=== PATIENT | male | born 1950 | race Two or more races ===

== ENCOUNTER 2023-04-21 00:01 | Inpatient (IN) | payer MEDICARE, MEDICAID ==
[2023-04-21] VITALS (14 sets, daily range): BP systolic 80–123; BP diastolic 49–66; PULSE 65–98; RESP 13–20; TEMP 98.1–98.4; O2SAT 96–100
[~2023-04-21] VITALS: Ht 172.7 cm; Wt 65.8 kg
[~2023-04-21 00:01] MED LIST: ACE3T PO
[2023-04-21 01:22] LABS: Basophils # (auto) 0 10 ^3/uL (0-0.2); Eosinophils # (auto) 0 10 ^3/uL (0-0.8); Hematocrit 11.5 % (41.0-53.0); Monocytes # (auto) 0.5 10 ^3/uL (0-1.3); Red Blood Cells 1.14 10^6/uL (4.5-5.90)
[2023-04-21 01:24] LABS: Basophils % (auto) 0.2 % (0.0-2.0); Eosinophils % (auto) 0.1 % (0.0-7.0); Lymphocytes # (auto) 0.9 10 ^3/uL (0.4-5.4); Lymphocytes % (auto) 9.6 % (10.0-50.0); Mean Corpuscular Hemoglobin 31.9 pg (28.0-32.0); Mean Corpuscular Hgb Conc. 31.8 g/dL (32.0-36.0); Mean Corpuscular Volume 100.2 fL (80.0-100.0); Monocytes % (auto) 5.7 % (0.0-12.0); Neutrophils % (auto) 84.4 % (37.0-80.0); White Blood Cell 9.5 10^3/uL (4.4-10.8)
[2023-04-21 01:25] LABS: Red Cell Distribution Width 23.2 % (11.8-14.3)
[2023-04-21 01:27] LABS: Hemoglobin 3.6 g/dL (13.5-17.5)
[2023-04-21 01:42] LABS: Albumin 1.4 g/dL (3.4-5.0); BUN/Creatinine Ratio 57.6 (10.0-20.0); Calcium 6.9 mg/dL (8.5-10.1)
[2023-04-21 01:45] LABS: Lactic Acid w/Reflex 2.2 mmol/L (0.4-2.0)
[2023-04-21 01:54] LABS: Bilirubin, Total 0.2 mg/dL (0.2-1.0); Total Protein 3.3 g/dL (6.4-8.2)
[2023-04-21] MEDS ORDERED: PANTOPRAZOLE 40 MG/10 ML VIAL INJ IV ONE (02:45)
[2023-04-21] MEDS ORDERED: cefTRIAXone 1GM/50ML D5W 50 ML IV ONE (02:45)
[2023-04-21 06:16] LABS: Urine Bacteria FEW /hpf (None Seen); Urine Blood Negative /uL (Negative); Urine WBC 1 /hpf (0 - 3)
[2023-04-21 09:36] LABS: Basophils # (auto) 0 10 ^3/uL (0-0.2); Eosinophils # (auto) 0 10 ^3/uL (0-0.8); Lymphocytes # (auto) 0.7 10 ^3/uL (0.4-5.4); Mean Corpuscular Hemoglobin 29.2 pg (28.0-32.0); Monocytes # (auto) 0.4 10 ^3/uL (0-1.3)
[2023-04-21 09:38] LABS: Basophils % (auto) 0.3 % (0.0-2.0); Hematocrit 24.9 % (41.0-53.0); Lymphocytes % (auto) 10.7 % (10.0-50.0); Mean Corpuscular Hgb Conc. 32.2 g/dL (32.0-36.0); Mean Corpuscular Volume 90.5 fL (80.0-100.0); Monocytes % (auto) 6.5 % (0.0-12.0); Neutrophils # (auto) 5.7 10 ^3/uL (1.6-8.6); Neutrophils % (auto) 82.5 % (37.0-80.0); Red Blood Cells 2.74 10^6/uL (4.5-5.90); White Blood Cell 6.9 10^3/uL (4.4-10.8)
[2023-04-21] MEDS ORDERED: ONDANSETRON HCL 4 MG/2 ML VIAL IV ONE (09:45)
[2023-04-21] MEDS ORDERED: MORPHINE SULFATE INJ 2 MG/ml SYRG IV ONE (09:45)
[2023-04-21 09:47] LABS: Nucleated Red Blood Cells % 3.2 %
[2023-04-21 10:00] LABS: INR 1.04 (0.9-1.15); Partial Thromboplastin Time 23.1 SEC (24.5-34.5)
[2023-04-21] MEDS ORDERED: NITROGLYCERIN 0.4 MG SL TAB SL PRN (11:15)
[2023-04-21] MEDS ORDERED: DEXTROSE (50%) 50ML SYRG IV PRN (11:15)
[2023-04-21] MEDS ORDERED: MORPHINE SULFATE INJ 2 MG/ml SYRG IV PRN ×2 (11:15→11:30)
[2023-04-21] MEDS: InsuLIN REG 1unit/0.01ml Soln (100units/ml) SC SCH ×3 (11:30→22:00)
[2023-04-21] MEDS: ACCU-CHEK COMFORT CURVE STRIP VI SCH ×3 (11:39→22:18)
[2023-04-21] MEDS ORDERED: DOCUSATE SOD 100 MG CAP PO PRN (11:45)
[2023-04-21 12:45] LABS: Basophils # (auto) 0 10 ^3/uL (0-0.2); Eosinophils # (auto) 0 10 ^3/uL (0-0.8); Eosinophils % (auto) 0.1 % (0.0-7.0); Hemoglobin 7.5 g/dL (13.5-17.5); Monocytes # (auto) 0.5 10 ^3/uL (0-1.3)
[2023-04-21 12:47] LABS: Basophils % (auto) 0.2 % (0.0-2.0); Hematocrit 22.7 % (41.0-53.0); Lymphocytes # (auto) 0.7 10 ^3/uL (0.4-5.4); Lymphocytes % (auto) 11.5 % (10.0-50.0); Mean Corpuscular Hemoglobin 29.6 pg (28.0-32.0); Mean Corpuscular Hgb Conc. 32.9 g/dL (32.0-36.0); Mean Corpuscular Volume 89.9 fL (80.0-100.0); Monocytes % (auto) 8.1 % (0.0-12.0); Neutrophils # (auto) 4.5 10 ^3/uL (1.6-8.6); Neutrophils % (auto) 80.1 % (37.0-80.0); Red Blood Cells 2.52 10^6/uL (4.5-5.90); White Blood Cell 5.7 10^3/uL (4.4-10.8)
[2023-04-21 12:53] LABS: Red Cell Distribution Width 20.6 % (11.8-14.3)
[2023-04-21] MEDS: PIPERACILLIN-TAZOB 3.375GM 100 ML IV SCH ×2 (15:21→22:47)
[2023-04-21 19:05] LABS: Basophils # (auto) 0 10 ^3/uL (0-0.2); Eosinophils # (auto) 0 10 ^3/uL (0-0.8); Monocytes # (auto) 0.4 10 ^3/uL (0-1.3)
[2023-04-21 19:07] LABS: Basophils % (auto) 0.7 % (0.0-2.0); Eosinophils % (auto) 0.2 % (0.0-7.0); Hematocrit 20.9 % (41.0-53.0); Lymphocytes # (auto) 0.7 10 ^3/uL (0.4-5.4); Lymphocytes % (auto) 13.2 % (10.0-50.0); Mean Corpuscular Hgb Conc. 32.7 g/dL (32.0-36.0); Mean Corpuscular Volume 88.7 fL (80.0-100.0); Monocytes % (auto) 7.7 % (0.0-12.0); Neutrophils # (auto) 4.1 10 ^3/uL (1.6-8.6); Neutrophils % (auto) 78.2 % (37.0-80.0); Red Blood Cells 2.35 10^6/uL (4.5-5.90); White Blood Cell 5.2 10^3/uL (4.4-10.8)
[2023-04-21 19:09] LABS: Nucleated Red Blood Cells % 4.3 %; Red Cell Distribution Width 21.9 % (11.8-14.3)
[2023-04-21 19:11] LABS: Hemoglobin 6.8 g/dL (13.5-17.5)
[2023-04-22] MEDS: PIPERACILLIN-TAZOB 3.375GM 100 ML IV SCH ×2 (05:43→14:12)
[2023-04-22 05:47] LABS: Basophils # (auto) 0 10 ^3/uL (0-0.2); Eosinophils # (auto) 0 10 ^3/uL (0-0.8); Hemoglobin 7.3 g/dL (13.5-17.5); Mean Corpuscular Hgb Conc. 33.4 g/dL (32.0-36.0); Monocytes # (auto) 0.4 10 ^3/uL (0-1.3)
[2023-04-22 05:49] LABS: Basophils % (auto) 0.4 % (0.0-2.0); Eosinophils % (auto) 0.4 % (0.0-7.0); Hematocrit 21.9 % (41.0-53.0); Lymphocytes # (auto) 0.5 10 ^3/uL (0.4-5.4); Lymphocytes % (auto) 9.7 % (10.0-50.0); Mean Corpuscular Hemoglobin 29.2 pg (28.0-32.0); Mean Corpuscular Volume 87.5 fL (80.0-100.0); Monocytes % (auto) 7.8 % (0.0-12.0); Neutrophils % (auto) 81.7 % (37.0-80.0); Red Blood Cells 2.51 10^6/uL (4.5-5.90); White Blood Cell 4.9 10^3/uL (4.4-10.8)
[2023-04-22 06:03] LABS: Albumin 1.6 g/dL (3.4-5.0); Calcium 7.4 mg/dL (8.5-10.1); Potassium 3.9 mmol/L (3.5-5.1)
[2023-04-22 06:06] LABS: BUN/Creatinine Ratio 48.2 (10.0-20.0); Bilirubin, Total 0.2 mg/dL (0.2-1.0); Total Protein 3.7 g/dL (6.4-8.2)
[2023-04-22 06:07] LABS: Nucleated Red Blood Cells % 5.1 %; Red Cell Distribution Width 20.5 % (11.8-14.3)
[2023-04-22] MEDS: ACCU-CHEK COMFORT CURVE STRIP VI SCH ×3 (06:38→21:04)
[2023-04-22] MEDS: InsuLIN REG 1unit/0.01ml Soln (100units/ml) SC SCH ×3 (06:50→21:08)
[2023-04-22 08:00] VITALS: PULSE 74; RESP 15; O2SAT 100
[2023-04-22] MEDS ORDERED: PANTOPRAZOLE 40 MG/10 ML VIAL INJ IV SCH (10:00)
[2023-04-22 20:00] VITALS: PULSE 76; RESP 12; O2SAT 100
[2023-04-22] MEDS: PANTOPRAZOLE 40 MG/10 ML VIAL INJ IV SCH (23:17)
[2023-04-23] VITALS (15 sets, daily range): BP systolic 85–146; BP diastolic 51–79; PULSE 78–112; RESP 16–18; TEMP 97.5–98.7; O2SAT 95–100
[2023-04-23 05:58] LABS: Basophils # (auto) 0 10 ^3/uL (0-0.2); Eosinophils # (auto) 0 10 ^3/uL (0-0.8)
[2023-04-23 06:00] LABS: Basophils % (auto) 0.4 % (0.0-2.0); Eosinophils % (auto) 0.2 % (0.0-7.0); Lymphocytes % (auto) 17.9 % (10.0-50.0); Mean Corpuscular Hemoglobin 30.9 pg (28.0-32.0); Mean Corpuscular Hgb Conc. 33.6 g/dL (32.0-36.0); Monocytes # (auto) 0.5 10 ^3/uL (0-1.3); Monocytes % (auto) 9.4 % (0.0-12.0); Neutrophils # (auto) 4.2 10 ^3/uL (1.6-8.6); Neutrophils % (auto) 72.1 % (37.0-80.0); Red Blood Cells 2.17 10^6/uL (4.5-5.90); White Blood Cell 5.8 10^3/uL (4.4-10.8)
[2023-04-23 06:11] LABS: Calcium 7.3 mg/dL (8.5-10.1); Hemoglobin 6.7 g/dL (13.5-17.5); Potassium 3.8 mmol/L (3.5-5.1)
[2023-04-23 06:16] LABS: BUN/Creatinine Ratio 43.8 (10.0-20.0)
[2023-04-23] MEDS: ACCU-CHEK COMFORT CURVE STRIP VI SCH ×4 (06:21→22:22)
[2023-04-23] MEDS: InsuLIN REG 1unit/0.01ml Soln (100units/ml) SC SCH ×4 (06:22→22:32)
[2023-04-23] MEDS: PANTOPRAZOLE 40 MG/10 ML VIAL INJ IV SCH ×2 (11:14→22:22)
[2023-04-24] VITALS (11 sets, daily range): BP systolic 91–128; BP diastolic 57–76; PULSE 54–116; RESP 16–19; TEMP 97.2–98.6; O2SAT 92–100
[2023-04-24] MEDS: ACCU-CHEK COMFORT CURVE STRIP VI SCH ×4 (06:40→22:04)
[2023-04-24] MEDS: InsuLIN REG 1unit/0.01ml Soln (100units/ml) SC SCH ×4 (06:44→22:05)
[2023-04-24 06:50] LABS: Chloride 115 mmol/L (98-107); Potassium 3.9 mmol/L (3.5-5.1); Sodium 140 mmol/L (136-145)
[2023-04-24 06:52] LABS: Basophils # (auto) 0 10 ^3/uL (0-0.2); Eosinophils # (auto) 0 10 ^3/uL (0-0.8); Eosinophils % (auto) 0.3 % (0.0-7.0); Hemoglobin 8.1 g/dL (13.5-17.5); Lymphocytes # (auto) 0.8 10 ^3/uL (0.4-5.4); Monocytes # (auto) 0.5 10 ^3/uL (0-1.3); Neutrophils # (auto) 4.4 10 ^3/uL (1.6-8.6); White Blood Cell 5.7 10^3/uL (4.4-10.8)
[2023-04-24 06:54] LABS: Basophils % (auto) 0.4 % (0.0-2.0); Hematocrit 24.8 % (41.0-53.0); Lymphocytes % (auto) 13.9 % (10.0-50.0); Mean Corpuscular Hemoglobin 31.3 pg (28.0-32.0); Mean Corpuscular Hgb Conc. 32.7 g/dL (32.0-36.0); Mean Corpuscular Volume 95.8 fL (80.0-100.0); Monocytes % (auto) 8.8 % (0.0-12.0); Neutrophils % (auto) 76.6 % (37.0-80.0); Nucleated Red Blood Cells % 3.7 %; Red Blood Cells 2.59 10^6/uL (4.5-5.90); Red Cell Distribution Width 16.4 % (11.8-14.3)
[2023-04-24 07:14] LABS: Anion Gap 8 (5-15); BUN/Creatinine Ratio 67.6 (10.0-20.0); Blood Urea Nitrogen 50 mg/dL (7-18); Calcium 7.4 mg/dL (8.5-10.1); Carbon Dioxide 17 mmol/L (21-32); GFR African American 133 mL/min; GFR Non-African American 110 mL/min; Glucose 141 mg/dL (74-106)
[2023-04-24] MEDS: PANTOPRAZOLE 40 MG/10 ML VIAL INJ IV SCH (10:21)
[2023-04-24] MEDS ORDERED: SODIUM CHLORIDE 0.9% 1,000 ML IV ONE (17:30)
[2023-04-24] MEDS: SODIUM CHLORIDE 0.9% 1,000 ML IV SCH (18:42)
[2023-04-24] MEDS: PANTOPRAZOLE 40mg/50ML NS AE 50 ML IV SCH ×2 (18:42→23:46)
[2023-04-24] MEDS ORDERED: PANTOPRAZOLE 40 MG/10 ML VIAL INJ IV ONE (18:45)
[2023-04-24 19:04] LABS: Basophils # (auto) 0 10 ^3/uL (0-0.2); Eosinophils # (auto) 0 10 ^3/uL (0-0.8); Lymphocytes # (auto) 0.6 10 ^3/uL (0.4-5.4); Monocytes # (auto) 0.4 10 ^3/uL (0-1.3); Neutrophils # (auto) 10.3 10 ^3/uL (1.6-8.6); Red Blood Cells 2.01 10^6/uL (4.5-5.90)
[2023-04-24 19:06] LABS: Basophils % (auto) 0.4 % (0.0-2.0); Hematocrit 19.9 % (41.0-53.0); Mean Corpuscular Hgb Conc. 30.3 g/dL (32.0-36.0); Mean Corpuscular Volume 99.1 fL (80.0-100.0); Monocytes % (auto) 3.2 % (0.0-12.0); Neutrophils % (auto) 91.4 % (37.0-80.0); Nucleated Red Blood Cells % 1.3 %; Red Cell Distribution Width 17.6 % (11.8-14.3); White Blood Cell 11.3 10^3/uL (4.4-10.8)
[2023-04-25] VITALS (17 sets, daily range): BP systolic 99–118; BP diastolic 55–66; PULSE 62–103; RESP 14–19; TEMP 97.5–98.7; O2SAT 99–100
[2023-04-25] MEDS: SODIUM CHLORIDE 0.9% 1,000 ML IV SCH ×2 (04:15→14:15)
[2023-04-25] MEDS: PANTOPRAZOLE 40mg/50ML NS AE 50 ML IV SCH ×4 (04:35→19:22)
[2023-04-25] MEDS: ACCU-CHEK COMFORT CURVE STRIP VI SCH ×4 (06:03→21:47)
[2023-04-25] MEDS: InsuLIN REG 1unit/0.01ml Soln (100units/ml) SC SCH ×4 (06:03→21:51)
[2023-04-25 08:54] LABS: Hematocrit 27.4 % (41.0-53.0); Hemoglobin 9.2 g/dL (13.5-17.5)
[2023-04-26] VITALS (8 sets, daily range): BP systolic 99–122; BP diastolic 57–70; PULSE 61–95; RESP 14–19; TEMP 97–98.6; O2SAT 92–100
[2023-04-26] MEDS: PANTOPRAZOLE 40mg/50ML NS AE 50 ML IV SCH ×5 (00:49→20:50)
[2023-04-26] MEDS: SODIUM CHLORIDE 0.9% 1,000 ML IV SCH ×3 (00:50→20:15)
[2023-04-26] MEDS: InsuLIN REG 1unit/0.01ml Soln (100units/ml) SC SCH ×4 (06:39→22:12)
[2023-04-26] MEDS: ACCU-CHEK COMFORT CURVE STRIP VI SCH ×4 (06:39→22:10)
[2023-04-26 21:25] LABS: Hematocrit 23.3 % (41.0-53.0); Hemoglobin 7.7 g/dL (13.5-17.5)
[2023-04-26 21:46] LABS: INR 2.85 (0.9-1.15); Partial Thromboplastin Time 24.5 SEC (24.5-34.5)
[2023-04-27] MEDS: PANTOPRAZOLE 40mg/50ML NS AE 50 ML IV SCH ×3 (01:59→11:15)
[2023-04-27 02:52] LABS: Hematocrit 25.6 % (41.0-53.0); Hemoglobin 8.5 g/dL (13.5-17.5)
[2023-04-27 05:00] VITALS: BP 125/62; PULSE 67; RESP 17; TEMP 98; O2SAT 99
[2023-04-27] MEDS: SODIUM CHLORIDE 0.9% 1,000 ML IV SCH (06:15)
[2023-04-27] MEDS: ACCU-CHEK COMFORT CURVE STRIP VI SCH ×2 (06:32→11:30)
[2023-04-27] MEDS: InsuLIN REG 1unit/0.01ml Soln (100units/ml) SC SCH ×2 (06:33→11:30)
[2023-04-27 08:00] VITALS: PULSE 63
[2023-04-27] MEDS ORDERED: SODIUM CHLORIDE LOCK 10 ML ONE (08:09)
[2023-04-27] MEDS ORDERED: FLUMAZENIL 0.1 MG/ML INJ 10ML MDV IV ONE (08:09)
[2023-04-27] MEDS ORDERED: NALOXONE HCL 0.4 MG/ML VIAL ONE (08:09)
[2023-04-27] MEDS ORDERED: LIDOCAINE VISCOUS 2% 15ML UD ONE (08:10)
[2023-04-27] MEDS ORDERED: diphenhdrAMINE HCL 50 MG/1 ML VL ONE (08:10)
[2023-04-27] MEDS ORDERED: MIDAZOLAM HCL 5 MG/ML-1ML VIAL ONE (08:10)
[2023-04-27] MEDS ORDERED: fentaNYL CITRATE 100 MCG/2 ML VL ONE (08:10)
[2023-04-27 09:00] VITALS: BP 151/68; PULSE 65; RESP 16; TEMP 98.4; O2SAT 99
[2023-04-27] MEDS ORDERED: PANT40TA2 PO (09:36)
== END 2023-04-27 13:04 | disposition home or self-care (01) | DRG 811 ==
LOC: ER 00:01 → EDBD 00:01 → EDUNIT# 00:01 → TELE 11:24 → TELE-WESTW 04-22 23:06
PROVIDERS: ADMIT Nurse Practitioner Acute Care; ATTEND Nurse Practitioner Acute Care
PROC: 30233N1 Transfusion of Nonautologous Red Blood Cells into Peripheral Vein, Percutaneous Approach (ICD-10-PCS; 2023-04-21)
PROC: 30233K1 Transfusion of Nonautologous Frozen Plasma into Peripheral Vein, Percutaneous Approach (ICD-10-PCS; principal; 2023-04-25)
DX: D62 Acute posthemorrhagic anemia (principal); E43 Unspecified severe protein-calorie malnutrition; R57.8 Other shock; K92.2 Gastrointestinal hemorrhage, unspecified; C18.9 Malignant neoplasm of colon, unspecified; Y92.89 Other specified places as the place of occurrence of the external cause; H66.90 Otitis media, unspecified, unspecified ear; T45.1X5A Adverse effect of antineoplastic and immunosuppressive drugs, initial encounter; I10 Essential (primary) hypertension; K62.89 Other specified diseases of anus and rectum; E11.9 Type 2 diabetes mellitus without complications; E86.1 Hypovolemia; Z68.20 Body mass index [BMI] 20.0-20.9, adult; Z85.048 Personal history of other malignant neoplasm of rectum, rectosigmoid junction, and anus; Z92.3 Personal history of irradiation
CPT/HCPCS: 36415; 36430; 36600; 70450; 71045; 71260; 72125; 74177; 80048; 80053; 81001; 82270; 82805; 82962; 83036; 83605; 83690; 83880; 84484; 85014; 85018; 85025; 85610; 85730; 86850; 86900; 86901; 86920; 93005; 96365; 96375; 97110; 97116; 97163; 97530; C9113; G0378; J0696; J1815; J2250; J2405; J2543

== ENCOUNTER 2024-10-22 17:03 | Emergency (ER) | payer MEDICARE, MEDICAID ==
[~2024-10-22] VITALS: Ht 172.7 cm; Wt 64.0 kg
[~2024-10-22 17:03] MED LIST changes: +PANT40TA2 PO
[2024-10-22 18:29] VITALS: BP 138/68; PULSE 88; RESP 16; TEMP 98.9; O2SAT 99
[2024-10-22] MEDS: HYDROcodone-ACET 5/325MG TAB PO ONE (18:39)
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
[2024-10-22] MEDS ORDERED: METH4PAK PO (20:17)
[2024-10-22] MEDS ORDERED: METH-1181 PO (20:17)
== END 2024-10-22 20:35 | disposition home or self-care (01) ==
LOC: ER 17:03
DX: S13.4XXA Sprain of ligaments of cervical spine, initial encounter (principal); S23.3XXA Sprain of ligaments of thoracic spine, initial encounter; S33.5XXA Sprain of ligaments of lumbar spine, initial encounter; I10 Essential (primary) hypertension; E11.9 Type 2 diabetes mellitus without complications; F17.200 Nicotine dependence, unspecified, uncomplicated; Z79.899 Other long term (current) drug therapy; V89.2XXA Person injured in unspecified motor-vehicle accident, traffic, initial encounter; Y93.I9 Activity, other involving external motion; Y92.488 Other paved roadways as the place of occurrence of the external cause; Y99.8 Other external cause status
CPT/HCPCS: 72125; 72128; 72131